=== PATIENT | male | born 1990 | race American Indian/Alaskan Native ===

== ENCOUNTER 2017-12-15 02:40 | Emergency (ER) | payer MEDICAID ==
[2017-12-15 03:03] VITALS: BP 127/81
[2017-12-15] MEDS ORDERED: Lidocaine 1% 30 ML SDV INJECT ONE (03:16)
[2017-12-15] MEDS ORDERED: Bacitracin Oint 1 GM U/D Packet TOP ONE (03:17)
[2017-12-15] MEDS ORDERED: Doxycycline 100 MG Cap PO ONE (03:18)
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
[2017-12-15 03:35] LABS: ANION GAP 12.7; CHLORIDE,CL 108 mmol/L (101-111); SODIUM,NA 141 mmol/L (135-145)
[2017-12-15] MEDS ORDERED: Ibuprofen 600 MG Tab PO ONE (03:56)
== END 2017-12-15 05:07 ==
LOC: DL.ED 02:40
DX: S01.511A Laceration without foreign body of lip, initial encounter (principal); F17.210 Nicotine dependence, cigarettes, uncomplicated; Y04.0XXA Assault by unarmed brawl or fight, initial encounter
CPT/HCPCS: 12011; 36415; 70450; 70486; 72125; 80053; 80305; 81001; 85025; 99285; A9270; G0480

== ENCOUNTER 2018-01-26 17:01 | Emergency (ER) | payer SELFPAY ==
[2018-01-26 17:43] LABS: CHLORIDE,CL 104 mmol/L (101-111); SODIUM,NA 139 mmol/L (135-145)
[2018-01-26 17:44] LABS: ACETAMINOPHEN < 10
== END 2018-01-26 18:40 | disposition left against medical advice (07) ==
LOC: DL.ED 17:01
DX: Z53.21 Procedure and treatment not carried out due to patient leaving prior to being seen by health care provider (principal)
CPT/HCPCS: 36415; 80053; 85025; G0480

== ENCOUNTER 2018-02-02 02:46 | Emergency (ER) | payer SELFPAY ==
[2018-02-02 02:52] VITALS: BP 124/84
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
== END 2018-02-02 03:00 ==
LOC: DL.ED 02:46
DX: F10.920 Alcohol use, unspecified with intoxication, uncomplicated (principal); F17.210 Nicotine dependence, cigarettes, uncomplicated
CPT/HCPCS: 99284

== ENCOUNTER 2018-04-20 | Emergency (ER) | payer SELFPAY ==
[2018-04-20 01:00] VITALS: BP 134/87
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
== END 2018-04-20 01:16 ==
LOC: DL.ED
DX: F10.920 Alcohol use, unspecified with intoxication, uncomplicated (principal); F17.210 Nicotine dependence, cigarettes, uncomplicated
CPT/HCPCS: 99283; 99284

== ENCOUNTER 2018-05-04 16:33 | Emergency (ER) | payer SELFPAY ==
[2018-05-04 16:49] VITALS: BP 132/84
[2018-05-04] MEDS ORDERED: Mupirocin Oint 22 GM Tube TOP ONE (17:34)
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
== END 2018-05-04 18:25 | disposition home or self-care (01) ==
LOC: DL.ED 16:33
DX: S06.0X9A Concussion with loss of consciousness of unspecified duration, initial encounter (principal); S02.40FA Zygomatic fracture, left side, initial encounter for closed fracture; S22.32XA Fracture of one rib, left side, initial encounter for closed fracture; S00.83XA Contusion of other part of head, initial encounter; Y04.0XXA Assault by unarmed brawl or fight, initial encounter
CPT/HCPCS: 70450; 70486; 71100; 99284; A9270